=== PATIENT | female | born 1995 | race African-American/Black ===

== ENCOUNTER 2022-06-30 15:57 | Emergency (ER) | payer BC, SELFPAY ==
[2022-06-30 16:10] VITALS: BP 129/96; PULSE 90; RESP 16; TEMP 36.7; O2SAT 100
--- NOTE | 2022-06-30 16:34 | ED.ANXIETY ---
HPI - Anxiety General Chief Complaint: Anxiety Stated Complaint: ANXIETY Time Seen by Provider: 06/30/22 16:35 Source: patient Mode of arrival: ambulatory Limitations: no limitations History of Present Illness HPI narrative: 26-year-old female presents with concern for anxiety. She reports she has a history of anxiety, she normally takes medication for it, however she did not have her anxiety medication with her today. She reports that she had acute problems with vision, hearing changes, and then a headache. She reports all symptoms have resolved except the headache. She does report history of migraines. She denies any current vision changes, trouble swallowing, dizziness, weakness in any extremity. She reports 05/07 headache MD complaint: anxiety Related Data Home Medications Medication Instructions Recorded Confirmed buspirone 5 mg tablet mg 06/30/22 escitalopram oxalate 10 mg tablet mg 06/30/22 hydroxyzine HCl 10 mg tablet mg 06/30/22 Allergies Allergy/AdvReac Type Severity Reaction Status Date / Time No Known Allergies Allergy Verified 06/30/22 16:49 Review of Systems Review of Systems: CONSTITUTIONAL: Denies malaise, chills, sweats, or fever. EYES: Denies current visual changes ENT: Denies rhinorrhea, congestion, sinus pain, otalgia or sore throat. CARDIOVASCULAR: Denies chest pain, palpitations, or edema. RESPIRATORY: Denies cough or dyspnea. GASTROINTESTINAL: Denies abdominal pain, nausea, vomiting MUSCULOSKELETAL: Denies myalgia. NEUROLOGIC: Denies numbness, weakness. Reports headache. PSYCHIATRIC: Reports anxiety All systems reviewed & are unremarkable except as noted in HPI and below PMFSH Comments At time of signature, agree with nursing past medical, surgical, social and family history. There is no relevant family history pertinent to the presenting complaint Exam Narrative: GENERAL: Well-appearing, well-nourished, and in no acute distress. HEAD: Normocephalic, atraumatic. EYES: PERRLA, sclera clear, and EOMI. No nystagmus. ENT: Nares clear. Mucous membranes moist. TM pearly to with sharp light reflex bilaterally; no tragal tenderness. Oropharynx without erythema or lesions. Tonsils not enlarged and without exudate. NECK: Supple. No lymphadenopathy. CHEST: No respiratory distress. Clear to auscultation. No bony deformities, no asymmetry. Speaks in full sentences. HEART: Regular rate and rhythm. No murmur heard. Normal peripheral pulses. SKIN: Warm, dry, no visible rash. NEURO: Alert and oriented x3. No focal deficits. Cranial nerves II through XII grossly intact PSYCH: Normal mood and affect Course Course Emergency Course: Patient is aware of diagnosis, understands and agrees to treatment plan. Anticipatory guidance given. Patient agrees to follow-up as directed and is aware of reasons to seek care at the emergency department. Portions of this record may have been created with voice recognition software Level of Care: Express Care Visit Reevaluation(s) Reevaluation #1: Patient reports headache symptoms improved after Toradol. Patient is comfortable being discharged. Date: 06/30/22 Time: 17:05 Vital Signs Vital signs: Vital Signs Temperature 98.1 F 06/30/22 16:10 Pulse Rate 90 06/30/22 16:10 Respiratory Rate 16 06/30/22 16:10 Blood Pressure 129/96 H 06/30/22 16:10 Pulse Oximetry 100 06/30/22 16:10 Oxygen Delivery Room Air 06/30/22 16:10 Temperature 98.1 F 06/30/22 16:10 Pulse Rate 90 06/30/22 16:10 Respiratory Rate 16 06/30/22 16:10 Blood Pressure 129/96 H 06/30/22 16:10 Pulse Oximetry 100 06/30/22 16:10 Oxygen Delivery Room Air 06/30/22 16:10 Reviewed. MDM - Anxiety MDM Narrative Medical decision making narrative: Exam findings show no acute concerns or changes; patient is non-toxic appearing and is in no distress. Patient is appropriate for outpatient treatment and follow-up. Differential Diagnosis Differential diagnosis: Like
[2022-06-30] MEDS: KETOROLAC (*BKC) 60 MG/2 ML VIAL IM (16:50)
== END 2022-06-30 17:16 | disposition home or self-care (01) ==
PROVIDERS: Emergency Provider Nurse Practitioner
DX: G43.109 Migraine with aura, not intractable, without status migrainosus (principal)
CPT/HCPCS: 96372; 99213; A4565; G0463; J1885